=== PATIENT | male | born 1995 | race Caucasian/White ===

== ENCOUNTER 2017-04-29 11:27 | Emergency (ER) | payer SELFPAY ==
[2017-04-29 11:41] VITALS: BP 131/69
--- NOTE | 2017-04-29 11:45 | UC ---
Throat Pain/Nasal Abdifatah HPI - History of Current Complaint Chief Complaint: UCGeneralIllness Stated Complaint: SINUSES Time Seen by Provider: 04/29/17 11:42 Hx Obtained From: Patient Onset/Duration: Sudden Onset Severity: Moderate Pain Scale Used: 0-10 Numeric - 4 Associated Signs & Symptoms: Positive: Negative - Allergies/Home Medications Allergies/Adverse Reactions: Allergies Allergy/AdvReac Type Severity Reaction Status Date / Time Azithromycin [From Zithromax] Allergy Intermediate Hives Unverified 04/29/17 11: 35 PMH/Surg Hx/FS Hx/Imm Hx Previously Healthy: Yes - Surgical History Surgical History: None - Social History Alcohol Use: None Substance Use Type: None Smoking Status (MU): Light Every Day Tobacco Smoker Type: Cigarettes Amount Used/How Often: 6-7 daily - Immunization History Most Recent Influenza Vaccination: not this season Vaccination Up to Date: Yes Review of Systems Constitutional: Negative Skin: Negative Eyes: Negative ENT: Sore Throat, Nasal Discharge, Sinus Congestion, Sinus Pain/Tenderness Respiratory: Cough Cardiovascular: Negative Gastrointestinal: Negative Genitourinary: Negative Motor: Negative Neurovascular: Negative Musculoskeletal: Negative Neurological: Negative Psychological: Negative All Other Systems Reviewed And Are Negative: Yes Physical Exam Triage Information Reviewed: Yes Vital Signs: Initial Vital Signs Temp 37.4 C 04/29/17 11:36 Pulse 80 04/29/17 11:36 Resp 18 04/29/17 11:36 BP 131/69 04/29/17 11:36 Pulse Ox 100 04/29/17 11:36 Vital Signs Reviewed: Yes Eye Exam: Normal ENT: Positive: Pharyngeal erythema, Nasal congestion, Nasal drainage, Sinus tenderness Dental Exam: Normal Neck exam: Normal Neck: Positive: 1 Respiratory Exam: Normal Cardiovascular Exam: Normal Abdominal Exam: Normal Musculoskeletal Exam: Normal Neurological Exam: Normal Psychological Exam: Normal Skin Exam: Normal Throat Pain/Nasal Course/Dx - Differential Dx/Diagnosis Provider Diagnoses: sinsu congestion. cough. bodyaches Discharge - Discharge Plan Condition: Stable Disposition: HOME Prescriptions: Amoxicillin/Clavulanate TAB* [Augmentin TAB 875*] 875 mg PO BID #20 tab Guaifenesin-Codeine [Cheratussin AC] 1 teasp PO Q8H PRN #120 ml MDD 15 ml PRN Reason: Cough LoraTADine TAB(NF) [Claritin 10 MG TAB(NF)] 10 mg PO DAILY #30 tab Patient Education Materials: Sinusitis (ED) Forms: *Work Release Referrals: Tone Jones MD [Primary Care Provider] -
== END 2017-04-29 11:59 | disposition home or self-care (01) ==
LOC: UCCORT 11:27
DX: J34.89 Other specified disorders of nose and nasal sinuses (principal); R05 Cough; R52 Pain, unspecified; Z72.0 Tobacco use
CPT/HCPCS: 99212; G0463

== ENCOUNTER 2019-05-07 12:06 | Emergency (ER) | payer OTHER ==
[2019-05-07 12:29] VITALS: BP 152/69
--- NOTE | 2019-05-07 13:00 | UC ---
Psychiatric Complaint HPI - HPI Summary HPI Summary: Pt is a 24 year old male presents to requesting recommendations and referral for treatment of depression. Pt states has had depression since grade school - has never taken medication or had therapy. Pt states he has financial stressors related to helping his mom and family. states is ending a relationship. 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 pt denies SI/HI - states friend has depression and it helps so he hoped he could try something. Pt without physical complaints other than tired from working. states eating and drinking normally, sleeps ok, no physical complaints. Pt states wasn't sure who to ask for referral information pt's medications as entered in EMR by arts administrator reviewed - History Of Current Complaint Chief Complaint: UCPsych Stated Complaint: DEPRESSION Time Seen by Provider: 05/07/19 12:22 Hx Obtained From: Patient - Allergies/Home Medications Allergies/Adverse Reactions: Allergies Allergy/AdvReac Type Severity Reaction Status Date / Time azithromycin [From Zithromax] Allergy Intermediate Hives Verified 05/07/19 12:29 Home Medications: Home Medications NK [No Home Medications Reported] 05/07/19 [History Confirmed 05/07/19] PMH/Surg Hx/FS Hx/Imm Hx Previously Healthy: Yes - Surgical History Surgical History: None - Family History Known Family History: Positive: Non-Contributory - Social History Occupation: Employed Full-time Lives: With Family Alcohol Use: Occasionally Substance Use Type: None Smoking Status (MU): Current Some Day Smoker Type: Cigarettes Amount Used/How Often: socially - Immunization History Most Recent Influenza Vaccination: not this season Vaccination Up to Date: Yes Review of Systems All Other Systems Reviewed And Are Negative: Yes Physical Exam - Summary Physical Exam Summary: Vital Signs Reviewed: Yes A+Ox3, no distress, pleasant, good eye contact, interacts without distress, focused speech pattern Eyes: Conjunctiva Clear, LUIS. 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 Pt states since grade school has had times of feeling depressed. states feels pressure related to finances, recent relation Pt adamantly denies no SI/HI - does not have PCP. Pt states friend on antidepressant and he wondered if would help On exam, VSS non concerning exam Scheduled an appt with new PCP for - pt given note for work spoke to [facility] - pt to arrive <5pm - fill out paperwork - will be able to ahve appt next week pt also given pamphlet for mobile crisis unit advised pt to call 911 or go to ED if he develops any thoughts of self harm pt states comfort with plan Pt noted appreciation of care at and resource referral I conferred with RN prior to discharging pt - no concern for his safety appreciated by RN BP elevated - recommend reviewe with PCP - luca appt - Differential Dx/Diagnosis Provider Diagnosis: Depressed mood Discharge ED - Sign-Out/Discharge Documenting (check all that apply): Post-Discharge Follow Up All imaging exams completed and their final reports reviewed: No Studies - Discharge Plan Condition: Stable Disposition: HOME Patient Education Materials: Depression (ED) Forms: *Work Release Referrals: La Way MD [Medical Doctor] - (12:55pm , 05/13/19 Arrive at 12:30 for paperwork ) Additional Instructions: - As discussed, [facility] is expecting you before 5:00 today. You'll be asked to fill paperwork out and they will be schedule for an appointmetn with a mental health professional early next week. - You have an appointment with a new primary care provider scheduled for , 05/13/19 at 12:55pm in [place] with Dr. La Seamus. Please arrive at 12:30pm to complete paperwork . It is very important you keep this appointment. If you need to change, please contact [phone] If, at any time, you need to speak to someone immediately - call 911, go to the emergency department or call the mobile crisis team [phone] Try to eat regular, healthy meals and get restful sleep - Billing Disposition and Condition Condition: STABLE Disposition: Home
== END 2019-05-07 13:37 | disposition home or self-care (01) ==
LOC: UCCORT 12:06
DX: F32.9 Major depressive disorder, single episode, unspecified (principal); Z88.1 Allergy status to other antibiotic agents; Z72.0 Tobacco use
CPT/HCPCS: 99211; G0463

== ENCOUNTER 2019-08-24 12:14 | Emergency (ER) | payer SELFPAY ==
--- NOTE | 2019-08-24 12:30 | UC ---
Respiratory Complaint HPI - HPI Summary HPI Summary: 24yo male presenting with runny nose and intermittently productive cough x1 week. Cough productive of yellow or clear sputum. States improving over the last few days. Patient states "this happens every year because of allergies." Denies sob and wheezing. Denies itchy/watery eyes. Denies n/v. Denies fever and chills. Denies body aches. States he took leftover antibiotics a few days ago from a sinus infection last year which helped some. Has claritin at home he has not taken. Notes history of asthma. Vapes daily. States he came because his boss sent him to be checked out. - History of Current Complaint Chief Complaint: UCRespiratory Stated Complaint: RUNNY NOSE COUGH CONGESTION Hx Obtained From: Patient Pain Intensity: 0 - Allergies/Home Medications Allergies/Adverse Reactions: Allergies Allergy/AdvReac Type Severity Reaction Status Date / Time azithromycin [From Zithromax] Allergy Intermediate Hives Verified 08/24/19 12:22 Home Medications: Home Medications Amoxicillin/Clavulanate TAB* [Augmentin TAB 875*] 875 mg PO BID #14 tab [Rx] PMH/Surg Hx/FS Hx/Imm Hx Previously Healthy: Yes Respiratory History: Asthma - Surgical History Surgical History: None - Family History Known Family History: Positive: Non-Contributory - Social History Alcohol Use: Occasionally Substance Use Type: None Smoking Status (MU): Current Some Day Smoker Type: eCigarettes Amount Used/How Often: socially Cessation Counseling: Patient Advised to Stop - Immunization History Most Recent Influenza Vaccination: not this season Vaccination Up to Date: Yes Review of Systems All Other Systems Reviewed And Are Negative: Yes Constitutional: Positive: Negative Eyes: Positive: Negative ENT: Positive: Nasal Discharge, Sinus Congestion. Negative: Sore Throat Respiratory: Positive: Cough. Negative: Shortness Of Breath Cardiovascular: Positive: Negative Gastrointestinal: Positive: Negative Musculoskeletal: Positive: Negative. Negative: Myalgia Neurological/Mental Status: Positive: Negative Physical Exam Triage Information Reviewed: Yes Appearance: Well-Appearing, No Pain Distress, Well-Nourished Vital Signs: Vital Signs (72 hours) 08/24/19 12:22 Temperature 98 F Pulse Rate 69 Respiratory 16 Rate Blood Pressure 134/62 (mmHg) O2 Sat by Pulse 98 Oximetry Vital Signs Reviewed: Yes Eyes: Positive: Conjunctiva Clear ENT: Positive: Hearing grossly normal, Pharynx normal, Nasal congestion, Nasal drainage, TMs normal, Uvula midline. Negative: Tonsillar swelling, Tonsillar exudate, Sinus tenderness Neck exam: Normal Neck: Positive: Supple, Nontender, No Lymphadenopathy Respiratory Exam: Normal Respiratory: Positive: Lungs clear, Normal breath sounds, No respiratory distress, No accessory muscle use. Negative: Crackles, Rhonchi, Wheezing Cardiovascular Exam: Normal Cardiovascular: Positive: RRR, No Murmur Neurological: Positive: Alert Psychological: Positive: Age Appropriate Behavior Skin Exam: Normal - no erythema or ecchymosis Respiratory Course/Dx - Course Course Of Treatment: Discussed viral vs bacterial vs allergic cause of symptoms. Patient declined testing for flu, strep, and covid19. Patient prefers to be treated for sinus infection "because this happens every year" so I treated with augmentin. Instructed to take allergy medication as well and increase fluids. Instructed to return with any new or worsening symptoms. Patient voiced understanding and agreed with treatment plan. - Differential Dx/Diagnosis Provider Diagnosis: Sinusitis, URI with cough and congestion Discharge ED - Sign-Out/Discharge Documenting (check all that apply): Patient Departure All imaging exams completed and their final reports reviewed: No Studies - Discharge Plan Condition: Stable Disposition: HOME Prescriptions: Amoxicillin/Clavulanate TAB* [Augmentin TAB 875*] 875 mg PO BID #14 tab Patient Education Materials: Upper Respiratory Infection (ED), Sinusitis (ED) Forms: *Work Release Additional Instructions: As discussed, take Augmentin for treatment of your sinusitis. Finish the full course even if you begin to feel better. Continue with your allergy medication as directed for symptom relief. Increase fluid intake and refrain from using your juul until symptoms fully resolve. Practice social distancing until symptoms fully resolve. - Billing Disposition and Condition Condition: STABLE Disposition: Home
[2019-08-24 12:41] VITALS: BP 134/62
== END 2019-08-24 12:52 | disposition home or self-care (01) ==
LOC: UCCORT 12:14
DX: J32.9 Chronic sinusitis, unspecified (principal); J06.9 Acute upper respiratory infection, unspecified; R05 Cough; R09.89 Other specified symptoms and signs involving the circulatory and respiratory systems; Z88.1 Allergy status to other antibiotic agents; F17.290 Nicotine dependence, other tobacco product, uncomplicated
CPT/HCPCS: 99212; G0463